=== PATIENT | female | born 1950 | race Caucasian/White ===

== ENCOUNTER → 2017-08-30 | Outpatient (CLI) | payer MEDICARE ==
--- NOTE | 2017-08-30 11:00 | Diagnostic Imaging Report ---
3 views of the right thumb. INDICATION: Injury. FINDINGS: There is a 2-mm osseous fragment seen along the dorsal aspect of the base of the distal phalanx in the thumb suggestive of an avulsion injury of indeterminate age. The alignment of the joints is satisfactory with no subluxation or dislocation. No other fracture seen. No radiopaque foreign body. IMPRESSION: A 2-mm avulsion fracture of indeterminate age at the dorsal aspect of the base of the distal phalanx of the right thumb. Report was stat faxed to office of Dr. Josue Perkins @ 10:58 AM/chinyere. Dictated by: Dictated on workstation # [id number]
== END ==
LOC: RAD 10:08
PROVIDERS: ATTEND Family Medicine
DX: S62.511A Displaced fracture of proximal phalanx of right thumb, initial encounter for closed fracture (principal); X58.XXXA Exposure to other specified factors, initial encounter; Y99.8 Other external cause status
CPT/HCPCS: 73140